=== PATIENT | female | born 1945 | race Hispanic/Latino ===

== ENCOUNTER 2018-06-18 10:44 | Day surgery (SDC) | payer MEDICARE ==
[2018-06-18] MEDS ORDERED: MYDRIACYL OD ONE (11:35)
[2018-06-18] MEDS ORDERED: IOPIDINE OD ONE (11:35)
[2018-06-18] MEDS ORDERED: AK-Dilate OD ONE (11:35)
[2018-06-18 12:05] VITALS: BP 146/77
[2018-06-18] MEDS ORDERED: IOPIDINE ONE (15:13)
[2018-06-18] MEDS ORDERED: AK-Dilate ONE (15:13)
[2018-06-18] MEDS ORDERED: MYDRIACYL ONE (15:13)
== END 2018-06-18 12:39 | disposition home or self-care (01) ==
LOC: OR 10:44
PROVIDERS: ATTEND Specialist
DX: H26.491 Other secondary cataract, right eye (principal); M19.90 Unspecified osteoarthritis, unspecified site; Z98.42 Cataract extraction status, left eye; Z98.41 Cataract extraction status, right eye; Z98.890 Other specified postprocedural states